=== PATIENT | female | born 1995 | race Caucasian/White ===

== ENCOUNTER 2016-09-06 20:26 | Emergency (ER) | payer OTHER ==
[~2016-09-06] VITALS: Ht 149.9 cm; Wt 91.3 kg
[~2016-09-06 20:26] MED LIST: ENDOCET 5-3251 EACH PO; FERROUS SULFAT325 MG PO; IBUPROFEN800 MG PO
[2016-09-06 21:54] LABS: INTERNAL CONTROL VALID? YES
[2016-09-06] MEDS ORDERED: NAPROXEN500 MG PO (22:57)
[2016-09-06 23:23] VITALS: BP 133/73
== END 2016-09-06 23:25 | disposition home or self-care (01) ==
LOC: EME 20:26
PROVIDERS: Physician Assistant Medical
DX: S61.412A Laceration without foreign body of left hand, initial encounter (principal); W26.8XXA Contact with other sharp object(s), not elsewhere classified, initial encounter; W19.XXXA Unspecified fall, initial encounter; R11.2 Nausea with vomiting, unspecified
CPT/HCPCS: 84703; 99281; 99284

== ENCOUNTER 2017-03-05 16:54 | Emergency (ER) | payer OTHER ==
[~2017-03-05] VITALS: Ht 147.3 cm; Wt 87.9 kg
[~2017-03-05 16:54] MED LIST changes: +NAPROXEN500 MG PO
[2017-03-05 17:34] LABS: INTERNAL CONTROL VALID? YES
[2017-03-05 17:40] LABS: ADD MIUA? YES; BILIRUBIN NEGATIVE; BLOOD NEGATIVE; COLOR YELLOW ((YELLOW)); GLUCOSE (STRIP) NEGATIVE; KETONES NEGATIVE; LEUKOCYTES NEGATIVE; NITRITE POSITIVE; PROTEIN (STRIP) NEGATIVE; SPECIFIC GRAVITY 1.017 (1.000-1.030); UROBILINOGEN 0.2 MG/DL (0.2-1.0)
[2017-03-05 17:43] LABS: BACTERIA RARE /HPF; EPITHELIAL CELLS 1+ /HPF; MUCUS TRACE /LPF; RED BLOOD CELLS 0-5 /HPF (0-5); UCUL ADDED? NO
[2017-03-05] MEDS ORDERED: BACTRIM,SEPT1 TABLET PO (18:38)
[2017-03-05 19:16] VITALS: BP 144/75
== END 2017-03-05 19:17 | disposition home or self-care (01) ==
LOC: EME 16:54 → EXP 16:54
DX: N39.0 Urinary tract infection, site not specified (principal); N92.6 Irregular menstruation, unspecified; Z32.02 Encounter for pregnancy test, result negative; F17.200 Nicotine dependence, unspecified, uncomplicated
CPT/HCPCS: 81003; 84703; 99281; 99284

== ENCOUNTER 2017-06-28 22:03 | Emergency (ER) | payer OTHER ==
[~2017-06-28] VITALS: Ht 149.9 cm; Wt 88.4 kg
[~2017-06-28 22:03] MED LIST changes: +BACTRIM,SEPT1 TABLET PO
[2017-06-28 23:40] LABS: HEMATOCRIT 38.4 % (36.0-46.0); MCH 27.9 PG (29.0-34.0); MCHC 33.3 G/DL (30.0-36.0); MCV 83.8 FL (83-99); MEAN PLAT.VOLUME 11.5 uM^3 (9.5-12.4); PLATELET COUNT 327 K/uL (156-360); RBC DIS.WIDTH-CV 12.7 % (11.8-14.6); RBC DIS.WIDTH-SD 38.4 % (39-53); RED BLOOD COUNT 4.58 M/uL (3.80-5.20); WHITE BLOOD COUNT 12.6 K/uL (4.1-10.2)
[2017-06-28 23:41] LABS: ADD MIUA? YES; BILIRUBIN NEGATIVE; BLOOD NEGATIVE; COLOR YELLOW ((YELLOW)); GLUCOSE (STRIP) NEGATIVE; KETONES NEGATIVE; LEUKOCYTES NEGATIVE; NITRITE NEGATIVE; PROTEIN (STRIP) NEGATIVE; SPECIFIC GRAVITY 1.025 (1.000-1.030)
[2017-06-28 23:52] LABS: BACTERIA RARE /HPF; EPITHELIAL CELLS 1+ /HPF; MUCUS TRACE /LPF; RED BLOOD CELLS 0-5 /HPF (0-5); UCUL ADDED? NO; WHITE BLOOD CELLS 0-5 /HPF (0-5)
[2017-06-28 23:56] LABS: CHLORIDE 107 mEq/L (99-109); POTASSIUM 3.8 mEq/L (3.7-5.4); SODIUM 138 mEq/L (136-147)
[2017-06-28 23:58] LABS: GLUCOSE 88 mg/dL (70-99)
[2017-06-28 23:59] LABS: ANION GAP 12 MEQ/L (2-14)
[2017-06-29] LABS: TOTAL BILIRUBIN 0.2 mg/dL (0.0-1.0)
[2017-06-29 00:02] LABS: ALKALINE PHOSPHATASE 50 IU/L (3-129); GFR ESTIMATE (CALCULATED) > 59 mL/min/
[2017-06-29 00:03] LABS: UREA NITROGEN (BUN) 8 mg/dL (9-23)
[2017-06-29 00:05] LABS: LIPASE 9 U/L (1.0-51.0)
[2017-06-29] MEDS ORDERED: ZOFRAN ODT4 MG PO (01:25)
[2017-06-29 01:36] VITALS: BP 122/84
== END 2017-06-29 01:37 | disposition home or self-care (01) ==
LOC: EME 22:03 → EXP 22:03
DX: O21.9 Vomiting of pregnancy, unspecified (principal); O26.899 Other specified pregnancy related conditions, unspecified trimester; R79.89 Other specified abnormal findings of blood chemistry; O99.330 Smoking (tobacco) complicating pregnancy, unspecified trimester; F17.200 Nicotine dependence, unspecified, uncomplicated; Z3A.00 Weeks of gestation of pregnancy not specified; F32.9 Major depressive disorder, single episode, unspecified
CPT/HCPCS: 76705; 80053; 81003; 83690; 84702; 85027; 99281; 99284

== ENCOUNTER 2017-07-05 17:40 | Emergency (ER) | payer OTHER ==
[~2017-07-05] VITALS: Ht 149.9 cm; Wt 88.0 kg
[~2017-07-05 17:40] MED LIST changes: +ZOFRAN ODT4 MG PO
[2017-07-05 18:22] LABS: MCH 28.2 PG (29.0-34.0); MCHC 33.7 G/DL (30.0-36.0); MCV 83.7 FL (83-99); MEAN PLAT.VOLUME 11.3 uM^3 (9.5-12.4); PLATELET COUNT 321 K/uL (156-360); RBC DIS.WIDTH-CV 12.9 % (11.8-14.6); RED BLOOD COUNT 4.54 M/uL (3.80-5.20); WHITE BLOOD COUNT 12.6 K/uL (4.1-10.2)
[2017-07-05 18:32] LABS: CHLORIDE 107 mEq/L (99-109); POTASSIUM 3.6 mEq/L (3.7-5.4); SODIUM 138 mEq/L (136-147)
[2017-07-05 18:34] LABS: GLUCOSE 89 mg/dL (70-99)
[2017-07-05 18:35] LABS: ANION GAP 9 MEQ/L (2-14)
[2017-07-05 18:37] LABS: ALKALINE PHOSPHATASE 49 IU/L (3-129)
[2017-07-05 18:38] LABS: GFR ESTIMATE (CALCULATED) > 59 mL/min/
[2017-07-05 18:39] LABS: UREA NITROGEN (BUN) 5 mg/dL (9-23)
[2017-07-05 18:44] LABS: TOTAL BILIRUBIN 0.3 mg/dL (0.0-1.0)
[2017-07-05 22:05] LABS: ADD MIUA? YES; BILIRUBIN NEGATIVE; BLOOD NEGATIVE; COLOR YELLOW ((YELLOW)); GLUCOSE (STRIP) NEGATIVE; KETONES NEGATIVE; LEUKOCYTES NEGATIVE; NITRITE NEGATIVE; PROTEIN (STRIP) NEGATIVE; SPECIFIC GRAVITY 1.015 (1.000-1.030)
[2017-07-05 22:09] LABS: BACTERIA RARE /HPF; EPITHELIAL CELLS RARE /HPF; MUCUS TRACE /LPF; RED BLOOD CELLS 0-5 /HPF (0-5); UCUL ADDED? NO; WHITE BLOOD CELLS 0-5 /HPF (0-5)
[2017-07-05 22:29] VITALS: BP 114/73
== END 2017-07-05 22:30 | disposition home or self-care (01) ==
LOC: EME 17:40
DX: O9A.211 Injury, poisoning and certain other consequences of external causes complicating pregnancy, first trimester (principal); S30.1XXA Contusion of abdominal wall, initial encounter; O20.0 Threatened abortion; Z3A.08 8 weeks gestation of pregnancy; Y04.8XXA Assault by other bodily force, initial encounter; Y07.9 Unspecified perpetrator of maltreatment and neglect; Z87.891 Personal history of nicotine dependence; Z59.0 Homelessness
CPT/HCPCS: 76705; 76801; 80053; 81003; 84702; 85027; 99281; 99284

== ENCOUNTER 2018-02-04 05:48 | Inpatient (IN) | payer OTHER ==
[~2018-02-04] VITALS: Ht 149.9 cm; Wt 97.0 kg
[~2018-02-04 05:48] MED LIST changes: +PRENATAL TABLE1 EAC3 PO; +ZOLOFT50 MG PO
[2018-02-04 06:21] LABS: BASOPHIL (%) 0.3 % (0-1); EOSINOPHIL (%) 0.6 % (0-5); EOSINOPHIL COUNT 0.1 K/uL (0-0.3); HEMATOCRIT 36.1 % (36.0-46.0); HEMOGLOBIN 12.1 G/DL (11.9-15.5); IMMATURE GRANULOCYTE (%) 0.4 % (0.0-0.7); LYMPHOCYTE (%) 33.5 % (15-42); LYMPHOCYTE COUNT 3.7 K/uL (1.0-2.8); MCH 27.5 PG (29.0-34.0); MCHC 33.5 G/DL (30.0-36.0); MONOCYTE (%) 5.1 % (3-12); MONOCYTE COUNT 0.6 K/uL (0-0.8); NEUTROPHIL (%) 60.1 % (45-76); NEUTROPHIL COUNT 6.7 K/uL (1.8-6.4); PLATELET COUNT 281 K/uL (156-360); RBC DIS.WIDTH-CV 13.4 % (11.8-14.6); RBC DIS.WIDTH-SD 39.5 % (39-53); WHITE BLOOD COUNT 11.1 K/uL (4.1-10.2)
[2018-02-04 08:36] LABS: AMPHETAMINE NEGATIVE (500 ng/mL); BARBITURATES NEGATIVE (200 ng/mL); BENZODIAZEPINES NEGATIVE (150 ng/mL); BUPRENORPHINE NEGATIVE (10 ng/mL); COCAINE NEGATIVE (150 ng/mL); METHADONE NEGATIVE (200 ng/mL); METHAMPHETAMINE NEGATIVE (500 ng/mL); OPIATES (MORPHINE) NEGATIVE (100 ng/mL); OXYCODONE NEGATIVE (100 ng/mL); PHENCYCLIDINE NEGATIVE (25 ng/mL); PROPOXYPHENE NEGATIVE (300 ng/mL); THC CANNABINOIDS NEGATIVE (50 ng/mL); TRICYCLIC ANTIDEPRESSANTS NEGATIVE (300 ng/mL)
[2018-02-04 12:00] VITALS: BP 122/68
[2018-02-04 14:00] VITALS: BP 116/61
[2018-02-04 16:19] VITALS: BP 110/72
[2018-02-05 05:57] LABS: BASOPHIL (%) 0.2 % (0-1); EOSINOPHIL (%) 0.1 % (0-5); HEMATOCRIT 25.9 % (36.0-46.0); HEMOGLOBIN 8.5 G/DL (11.9-15.5); IMMATURE GRANULOCYTE (%) 0.2 % (0.0-0.7); LYMPHOCYTE (%) 27.3 % (15-42); LYMPHOCYTE COUNT 3.5 K/uL (1.0-2.8); MCH 27.2 PG (29.0-34.0); MCHC 32.8 G/DL (30.0-36.0); MCV 82.7 FL (83-99); MONOCYTE (%) 6.7 % (3-12); MONOCYTE COUNT 0.9 K/uL (0-0.8); NEUTROPHIL (%) 65.5 % (45-76); NEUTROPHIL COUNT 8.3 K/uL (1.8-6.4); PLATELET COUNT 230 K/uL (156-360); RBC DIS.WIDTH-CV 13.7 % (11.8-14.6); RBC DIS.WIDTH-SD 40.4 % (39-53); RED BLOOD COUNT 3.13 M/uL (3.80-5.20); WHITE BLOOD COUNT 12.8 K/uL (4.1-10.2)
[2018-02-06] MEDS ORDERED: IBUPROFEN800 MG PO (10:36)
[2018-02-06] MEDS ORDERED: ENDOCET 5-3251 EACH PO (10:37)
[2018-02-06] MEDS ORDERED: CHROMAGEN,1 CAPSULE PO (10:37)
[2018-02-06 11:53] VITALS: BP 125/67
== END 2018-02-06 14:13 | disposition home or self-care (01) | DRG 765 ==
LOC: 2WEST 05:48 → 2SOUTH 14:31 → 2WEST 02-06 14:13
PROVIDERS: Obstetrics & Gynecology
PROC: 10D00Z1 Extraction of Products of Conception, Low, Open Approach (ICD-10-PCS; principal; 2018-02-04)
DX: O36.5930 Maternal care for other known or suspected poor fetal growth, third trimester, not applicable or unspecified (principal); O99.214 Obesity complicating childbirth; E66.9 Obesity, unspecified; O99.03 Anemia complicating the puerperium; D62 Acute posthemorrhagic anemia; Z37.0 Single live birth; Z3A.39 39 weeks gestation of pregnancy; O34.211 Maternal care for low transverse scar from previous cesarean delivery; O99.344 Other mental disorders complicating childbirth; F20.9 Schizophrenia, unspecified; F31.9 Bipolar disorder, unspecified
CPT/HCPCS: 85025; 86850; 86900; 86901; 88307; J0690; J1100; J2274; J2405; J2590; J2765; J7120; S0020